=== PATIENT | male | born 1975 | race Caucasian/White ===

== ENCOUNTER 2016-06-10 21:14 | Emergency (ER) | payer OTHER ==
[~2016-06-10 21:14] MED LIST: FLEXERIL; TYLENOL #3
[2016-06-10] MEDS ORDERED: LIDOCAINE 1% MDV 20ML VIAL As Ordered ONE (22:46)
--- NOTE | 2016-06-10 23:33 | EDDOCDS ---
Physician Documentation [facility] Name: Wilfrido Lake Age: 40 yrs Sex: Male : 1975 Arrival Date: 06/10/2016 Time: 21:14 Bed I3 / M3 Private MD: [facility] Disposition: 06/10/16 23:17 Discharged to Home/Self Care. Impression: Cutaneous abscess of face. - Condition is Stable. - Discharge Instructions: Abscess, Incision and Drainage. - Medication Reconciliation, Local Pharmacy Hours form. - Follow up: [facility]; When: 1 - 2 days; Reason: Recheck today's complaints. Follow up: Emergency Department; When: As needed; Reason: Wound/Symptom Recheck, Fever > 102F, Worsening of conditions. - Problem is new. - Symptoms have improved. - Notes: have wound rechecked in 48 hrs. continue bactrim. keep wound clean, dry and covered Historical: - Allergies: No known drug Allergies; - Home Meds: 1. ibuprofen 800 mg Oral tab 3 times per day (Last dose: 06/10/2016 12:00) 2. sulfamethoxazole-trimethoprim 800-160 mg Oral tab 1 tab every 12 hours (Last dose: 06/10/2016 11:00) - PMHx: none; - PSHx: shoulder surgery 2007; - Social history: Smoking status: Patient uses tobacco products, current every day smoker. No barriers to communication noted, The patient speaks fluent Cape Verdean, Speaks appropriately for age, Preferred Language: Cape Verdean. - Family history: Not pertinent. - : The pt / caregiver states he / she is not on anticoagulants. Home medication list is obtained from the patient. - Exposure Risk Screening:: None identified. Vital Signs: 06/10 21:16 BP 116 / 73; Pulse 89; Resp 18 S; Temp 97.7(O); Pulse Ox 97% on R/A; Weight 72.57 kg / gr2 159.99 lbs (R); Height 5 ft. 6 in. (167.64 cm) (R); Pain 3/10; 23:26 BP 112 / 81; Pulse 69; Resp 18; Temp 98.0(O); Pulse Ox 96% on R/A; Pain 10/10; rw1 21:16 Body Mass Index 25.82 (72.57 kg, 167.64 cm) gr2 MDM: 22:45 Lidocaine 10 mg/mL (1 %) 10 ml Infiltration once; to bedside ordered. ar2 Administered Medications: 23:20 Drug: Lidocaine 10 ml [lidocaine 10 mg/mL (1 %) injection solution (10 mL)] {Note: rw1 adminstered by provider.} Route: Infiltration; Site: affected area; 23:21 Follow up: Response: No Adverse Reaction rw1 Signatures: Suzan LangleyRN RN lf1 Alfredo Del Real PA-C PA-C ar2 Marylin StevensRN RN ld5 Cleve Linares LPN rw1 The chart was reviewed and I authenticate all verbal orders and agree with the evaluation and treatment provided.Corrections: (The following items were deleted from the chart) 21:27 21:24 Home Meds: unknown antibiotic twice a day (Last Dose: 06/10/2016 11:00); lf1 lf1 MTDD
--- NOTE | 2016-06-10 23:33 | EDDOCDS ---
Nurse's Notes [facility] Name: Wilfrido Lake Age: 40 yrs Sex: Male : 1975 Arrival Date: 06/10/2016 Time: 21:14 Bed I3 / M3 Private MD: [facility] Diagnosis: Cutaneous abscess of face Presentation: 06/10 21:19 Presenting complaint: Patient states: Was seen at [facility] for an abscess on the left lf1 side of his face and put on an antibiotic "that ain't doing nothing" and I have been taking it for two days plus another that I had left over from another time. Pain is currently a 10/10. Redness and swelling noted to left side of face. Adult Sepsis Screening: The patient does not have new or worsening altered mentation. Patient's respiratory rate is less than 22. Systolic blood pressure is greater than 100. Patient has a qSOFA score of 0- Negative Sepsis Screen. Suicide/Homicide risk assessment- the patient denies having any suicidal and/or homicidal ideations and does not present with any other emotional, behavioral or mental health complaints. Status: Patient is not a vp client services or dependent. Transition of care: patient was not received from another setting of care. 21:19 Acuity: JUANPABLO Level 3 lf1 21:19 Method Of Arrival: Walkin/Carried/Asstd lf1 Triage Assessment: 21:24 General: Appears in no apparent distress, unkempt, Behavior is cooperative. Pain: lf1 Location: left cheek Pain currently is 10 out of 10 on a pain scale. HIV screening NA for this visit Offered previously. Neurological: Level of Consciousness is awake, alert, Oriented to person, place, time. Respiratory: Respiratory effort is even, unlabored. GI: Denies nausea, vomiting. Derm: Historical: - Allergies: No known drug Allergies; - Home Meds: 1. ibuprofen 800 mg Oral tab 3 times per day (Last dose: 06/10/2016 12:00) 2. sulfamethoxazole-trimethoprim 800-160 mg Oral tab 1 tab every 12 hours (Last dose: 06/10/2016 11:00) - PMHx: none; - PSHx: shoulder surgery 2007; - Social history: Smoking status: Patient uses tobacco products, current every day smoker. No barriers to communication noted, The patient speaks fluent Sami, Speaks appropriately for age, Preferred Language: Sami. - Family history: Not pertinent. - : The pt / caregiver states he / she is not on anticoagulants. Home medication list is obtained from the patient. - Exposure Risk Screening:: None identified. Screenin:27 Screening information is obtained from the patient. Fall risk: No risks identified. lf1 Assistance ADL's: requires no assistance with activities of daily living. Abuse/DV Screen: The patient / caregiver reports he/she is: not in a situation that causes fear, pain or injury. Nutritional screening: No deficits noted. Advance Directives: Currently, there is no health care proxy. There is no active DNR order. home support is adequate. Assessment: 23:30 General: Appears in no apparent distress, Behavior is cooperative. Pain: Location: left ld5 submandibular area Pain currently is 10 out of 10 on a pain scale. Neurological: Level of Consciousness is awake, alert. Respiratory: Airway is patent Respiratory effort is even, unlabored. Derm: Abscess located on left submandibular area. Vital Signs: 21:16 BP 116 / 73; Pulse 89; Resp 18 S; Temp 97.7(O); Pulse Ox 97% on R/A; Weight 72.57 kg gr2 (R); Height 5 ft. 6 in. (167.64 cm) (R); Pain 3/10; 23:26 BP 112 / 81; Pulse 69; Resp 18; Temp 98.0(O); Pulse Ox 96% on R/A; Pain 10/10; rw1 21:16 Body Mass Index 25.82 (72.57 kg, 167.64 cm) 2 Vitals: 21:16 Log In Time: June 10, 2016 at 21:16. gr2 ED Course: 21:15 Patient visited by Dipti Solano. gr2 21:15 NO PRIMARY PHYSICIAN, . is Private Physician. gr2 21:15 [facility] is Private Physician. gr2 21:15 Patient moved to Waiting gr2 21:17 Patient visited by Dipti Solano. gr2 21:17 Patient moved to Pre E elp 21:22 Triage Initiated lf1 22:23 Patient moved to Triage 2 cln 22:39 Alfred[facility] Del Real [facility] ar2 22:39 Tra Leger DO is Attending Physician. ar2 22:39 Patient visited by Alfredo Del Real PA-C. ar2 22:45 Patient moved to I3 / cz 22:45 Assist provider with I & D: of an abscess on left submandibular area. ld5 23:17 [facility] is Referral Physician. ar2 23:30 The patient / caregiver is instructed regarding the plan of care and ED course. Patient ld5 has correct armband on for positive identification. 23:30 No IV's were initiated during this patient's visit. ld5 23:32 Patient visited by Marylin Stevens RN. ld5 Administered Medications: 23:20 Drug: Lidocaine 10 ml [lidocaine 10 mg/mL (1 %) injection solution (10 mL)] {Note: rw1 adminstered by provider.} Route: Infiltration; Site: affected area; 23:21 Follow up: Response: No Adverse Reaction rw1 Order Results: There are currently no results for this order. Outcome: 23:17 Discharge ordered by Provider. ar2 23:31 Discharge Assessment: Patient awake, alert and oriented x 3. No cognitive and/or ld5 functional deficits noted. Patient verbalized understanding of disposition instructions. patient administered narcotics - no. The following High Risk Discharge criteria are identified: None. Discharged to home ambulatory, with significant other. Condition: stable. Discharge instructions given to patient, significant other, Instructed on discharge instructions, follow up and referral plans. wound care, Demonstrated understanding of instructions, Pt was receptive of discharge instructions/ teaching. No special radiology studies were completed. Property :Personal belongings accompany Pt. 23:32 Patient left the ED. ld5 Signatures: Frank Rayo, PAL RN cz Cleve Linares LPN LPN rw1 Suzan Langley RN RN lf1 Alfredo Del Real PA-C PA-C ar2 Marylin Stevens,RN RN ld5 Dipti Solano gr2 Natalie Ortiz, PATTERNMAKER APPRENTICE WOOD PATTERNMAKER APPRENTICE WOOD Ashley De Jesus, PATTERNMAKER APPRENTICE WOOD PATTERNMAKER APPRENTICE WOOD cln Corrections: (The following items were deleted from the chart) 21:27 21:24 Home Meds: unknown antibiotic twice a day (Last Dose: 06/10/2016 11:00); [place] [id number] MTDD
--- NOTE | 2016-06-13 00:33 | EDDOCDS ---
Nurse's Notes [facility] Name: Wilfrido Lake Age: 40 yrs Sex: Male : 1975 Arrival Date: 06/10/2016 Time: 21:14 Bed I3 / M3 Private MD: [facility] Diagnosis: Cutaneous abscess of face Presentation: 06/10 21:19 Presenting complaint: Patient states: Was seen at [facility] for an abscess on the left lf1 side of his face and put on an antibiotic "that ain't doing nothing" and I have been taking it for two days plus another that I had left over from another time. Pain is currently a 10/10. Redness and swelling noted to left side of face. Adult Sepsis Screening: The patient does not have new or worsening altered mentation. Patient's respiratory rate is less than 22. Systolic blood pressure is greater than 100. Patient has a qSOFA score of 0- Negative Sepsis Screen. Suicide/Homicide risk assessment- the patient denies having any suicidal and/or homicidal ideations and does not present with any other emotional, behavioral or mental health complaints. Status: Patient is not a representative personal service or dependent. Transition of care: patient was not received from another setting of care. 21:19 Acuity: JUANPABLO Level 3 lf1 21:19 Method Of Arrival: Walkin/Carried/Asstd lf1 Triage Assessment: 21:24 General: Appears in no apparent distress, unkempt, Behavior is cooperative. Pain: lf1 Location: left cheek Pain currently is 10 out of 10 on a pain scale. HIV screening NA for this visit Offered previously. Neurological: Level of Consciousness is awake, alert, Oriented to person, place, time. Respiratory: Respiratory effort is even, unlabored. GI: Denies nausea, vomiting. Derm: Historical: - Allergies: No known drug Allergies; - Home Meds: 1. ibuprofen 800 mg Oral tab 3 times per day (Last dose: 06/10/2016 12:00) 2. sulfamethoxazole-trimethoprim 800-160 mg Oral tab 1 tab every 12 hours (Last dose: 06/10/2016 11:00) - PMHx: none; - PSHx: shoulder surgery 2007; - Social history: Smoking status: Patient uses tobacco products, current every day smoker. No barriers to communication noted, The patient speaks fluent Macedonian, Speaks appropriately for age, Preferred Language: Macedonian. - Family history: Not pertinent. - : The pt / caregiver states he / she is not on anticoagulants. Home medication list is obtained from the patient. - Exposure Risk Screening:: None identified. Screenin:27 Screening information is obtained from the patient. Fall risk: No risks identified. lf1 Assistance ADL's: requires no assistance with activities of daily living. Abuse/DV Screen: The patient / caregiver reports he/she is: not in a situation that causes fear, pain or injury. Nutritional screening: No deficits noted. Advance Directives: Currently, there is no health care proxy. There is no active DNR order. home support is adequate. Assessment: 23:30 General: Appears in no apparent distress, Behavior is cooperative. Pain: Location: left ld5 submandibular area Pain currently is 10 out of 10 on a pain scale. Neurological: Level of Consciousness is awake, alert. Respiratory: Airway is patent Respiratory effort is even, unlabored. Derm: Abscess located on left submandibular area. Vital Signs: 21:16 BP 116 / 73; Pulse 89; Resp 18 S; Temp 97.7(O); Pulse Ox 97% on R/A; Weight 72.57 kg gr2 (R); Height 5 ft. 6 in. (167.64 cm) (R); Pain 3/10; 23:26 BP 112 / 81; Pulse 69; Resp 18; Temp 98.0(O); Pulse Ox 96% on R/A; Pain 10/10; rw1 21:16 Body Mass Index 25.82 (72.57 kg, 167.64 cm) 2 Vitals: 21:16 Log In Time: June 10, 2016 at 21:16. gr2 ED Course: 21:15 Patient visited by Dipti Solano. gr2 21:15 NO PRIMARY PHYSICIAN, . is Private Physician. gr2 21:15 [facility] is Private Physician. gr2 21:15 Patient moved to Waiting gr2 21:17 Patient visited by Dipti Solano. gr2 21:17 Patient moved to Pre E elp 21:22 Triage Initiated lf1 22:23 Patient moved to Triage 2 cln 22:39 Alfred[facility] Del Real [facility]C [facility] ar2 22:39 Tra Leger DO is Attending Physician. ar2 22:39 Patient visited by Alfredo Del Real PA-C. ar2 22:45 Patient moved to I3 / M3 cz 22:45 Assist provider with I & D: of an abscess on left submandibular area. ld5 23:17 [facility] is Referral Physician. ar2 23:30 The patient / caregiver is instructed regarding the plan of care and ED course. Patient ld5 has correct armband on for positive identification. 23:30 No IV's were initiated during this patient's visit. ld5 23:32 Patient visited by Marylin Stevens RN. ld5 23:55 [facility] Payment Agreement was scanned into [employer] and attached to record. ks16 06/11 10:56 T-Sheet-- Draft Copy was scanned into [employer] and attached to record. gb 06/12 21:47 [facility] Payment Agreement was scanned into [employer] and attached to record. ks16 Administered Medications: 06/10 23:20 Drug: Lidocaine 10 ml [lidocaine 10 mg/mL (1 %) injection solution (10 mL)] {Note: rw1 adminstered by provider.} Route: Infiltration; Site: affected area; 23:21 Follow up: Response: No Adverse Reaction rw1 Order Results: There are currently no results for this order. Outcome: 23:17 Discharge ordered by Provider. ar2 23:31 Discharge Assessment: Patient awake, alert and oriented x 3. No cognitive and/or ld5 functional deficits noted. Patient verbalized understanding of disposition instructions. patient administered narcotics - no. The following High Risk Discharge criteria are identified: None. Discharged to home ambulatory, with significant other. Condition: stable. Discharge instructions given to patient, significant other, Instructed on discharge instructions, follow up and referral plans. wound care, Demonstrated understanding of instructions, Pt was receptive of discharge instructions/ teaching. No special radiology studies were completed. Property :Personal belongings accompany Pt. 23:32 Patient left the ED. ld5 Signatures: Frank Rayo, PAL RN cz Dimple Rolon, Reg Reg gb Cleve Linares LPN LPN rw1 Suzan Langley RN RN lf1 Alfredo Del Real PA-C PA-C ar2 Marylin Stevens,PAL RN ld5 Dipti Solano gr2 Natalie Ortiz, INTENSIVE CARE ANAESTHETIST INTENSIVE CARE ANAESTHETIST elp Bette Nava, Reg Reg ks16 Ashley James, INTENSIVE CARE ANAESTHETIST INTENSIVE CARE ANAESTHETIST cln Corrections: (The following items were deleted from the chart) 21:24 Home Meds: unknown antibiotic twice a day (Last Dose: 06/10/2016 11:00); lf1 lf1 Chart Complete MTDD
--- NOTE | 2016-06-13 00:33 | EDDOCDS ---
Physician Documentation [facility] Name: Wilfrido Lake Age: 40 yrs Sex: Male : 1975 Arrival Date: 06/10/2016 Time: 21:14 Bed I3 / M3 Private MD: [facility] Disposition: 06/10/16 23:17 Discharged to Home/Self Care. Impression: Cutaneous abscess of face. - Condition is Stable. - Discharge Instructions: Abscess, Incision and Drainage. - Medication Reconciliation, Local Pharmacy Hours form. - Follow up: [facility]; When: 1 - 2 days; Reason: Recheck today's complaints. Follow up: Emergency Department; When: As needed; Reason: Wound/Symptom Recheck, Fever > 102F, Worsening of conditions. - Problem is new. - Symptoms have improved. - Notes: have wound rechecked in 48 hrs. continue bactrim. keep wound clean, dry and covered Historical: - Allergies: No known drug Allergies; - Home Meds: 1. ibuprofen 800 mg Oral tab 3 times per day (Last dose: 06/10/2016 12:00) 2. sulfamethoxazole-trimethoprim 800-160 mg Oral tab 1 tab every 12 hours (Last dose: 06/10/2016 11:00) - PMHx: none; - PSHx: shoulder surgery 2007; - Social history: Smoking status: Patient uses tobacco products, current every day smoker. No barriers to communication noted, The patient speaks fluent Andorran, Speaks appropriately for age, Preferred Language: Andorran. - Family history: Not pertinent. - : The pt / caregiver states he / she is not on anticoagulants. Home medication list is obtained from the patient. - Exposure Risk Screening:: None identified. Vital Signs: 06/10 21:16 BP 116 / 73; Pulse 89; Resp 18 S; Temp 97.7(O); Pulse Ox 97% on R/A; Weight 72.57 kg / gr2 159.99 lbs (R); Height 5 ft. 6 in. (167.64 cm) (R); Pain 3/10; 23:26 BP 112 / 81; Pulse 69; Resp 18; Temp 98.0(O); Pulse Ox 96% on R/A; Pain 10/10; rw1 21:16 Body Mass Index 25.82 (72.57 kg, 167.64 cm) gr2 MDM: 22:45 Lidocaine 10 mg/mL (1 %) 10 ml Infiltration once; to bedside ordered. ar2 23:55 Financial registration complete. [facility] 23:56 [facility] Payment Agreement was scanned into [employer] and attached to record. ks16 06/11 10:56 T-Sheet-- Draft Copy was scanned into [employer] and attached to record. 06/12 21:47 [facility] Payment Agreement was scanned into [employer] and attached to record. [facility] Administered Medications: 06/10 23:20 Drug: Lidocaine 10 ml [lidocaine 10 mg/mL (1 %) injection solution (10 mL)] {Note: rw1 adminstered by provider.} Route: Infiltration; Site: affected area; 23:21 Follow up: Response: No Adverse Reaction rw1 Signatures: Dimple Rolon, Reg Reg gb Suzan LangleyRN RN lf1 Alfredo Del Real PA-C PA-C ar2 Marylin StevensRN RN ld5 Bette Nava, Reg Reg ks16 Cleve Linares LPN rw1 The chart was reviewed and I authenticate all verbal orders and agree with the evaluation and treatment provided.Corrections: (The following items were deleted from the chart) : 21:24 Home Meds: unknown antibiotic twice a day (Last Dose: 06/10/2016 11:00); lf1 lf1 Attachments: 23:56 [facility] Payment Agreement [email or web address] 06/11 10:56 T-Sheet-- Draft Copy 06/12 21:47 [facility] Payment Agreement [facility] Chart Complete MTDD
--- NOTE | 2016-06-13 00:33 | EDDOCDS ---
Physician Documentation [facility] Name: Wilfrido Lake Age: 40 yrs Sex: Male : 1975 Arrival Date: 06/10/2016 Time: 21:14 Bed I3 / M3 Private MD: [facility] Disposition: 06/10/16 23:17 Discharged to Home/Self Care. Impression: Cutaneous abscess of face. - Condition is Stable. - Discharge Instructions: Abscess, Incision and Drainage. - Medication Reconciliation, Local Pharmacy Hours form. - Follow up: [facility]; When: 1 - 2 days; Reason: Recheck today's complaints. Follow up: Emergency Department; When: As needed; Reason: Wound/Symptom Recheck, Fever > 102F, Worsening of conditions. - Problem is new. - Symptoms have improved. - Notes: have wound rechecked in 48 hrs. continue bactrim. keep wound clean, dry and covered Historical: - Allergies: No known drug Allergies; - Home Meds: 1. ibuprofen 800 mg Oral tab 3 times per day (Last dose: 06/10/2016 12:00) 2. sulfamethoxazole-trimethoprim 800-160 mg Oral tab 1 tab every 12 hours (Last dose: 06/10/2016 11:00) - PMHx: none; - PSHx: shoulder surgery 2007; - Social history: Smoking status: Patient uses tobacco products, current every day smoker. No barriers to communication noted, The patient speaks fluent [place]ine[place], Speaks appropriately for age, Preferred Language: [place]. - Family history: Not pertinent. - : The pt / caregiver states he / she is not on anticoagulants. Home medication list is obtained from the patient. - Exposure Risk Screening:: None identified. Vital Signs: 06/10 21:16 BP 116 / 73; Pulse 89; Resp 18 S; Temp 97.7(O); Pulse Ox 97% on R/A; Weight 72.57 kg / gr2 159.99 lbs (R); Height 5 ft. 6 in. (167.64 cm) (R); Pain 3/10; 23:26 BP 112 / 81; Pulse 69; Resp 18; Temp 98.0(O); Pulse Ox 96% on R/A; Pain 10/10; rw1 21:16 Body Mass Index 25.82 (72.57 kg, 167.64 cm) gr2 MDM: 22:45 Lidocaine 10 mg/mL (1 %) 10 ml Infiltration once; to bedside ordered. ar2 23:55 Financial registration complete. [facility] 23:56 [facility] Payment Agreement was scanned into [employer] and attached to record. [email or web address] 06/11 10:56 T-Sheet-- Draft Copy was scanned into [employer] and attached to record. 06/12 21:47 [facility] Payment Agreement was scanned into [employer] and attached to record. [facility] Administered Medications: 06/10 23:20 Drug: Lidocaine 10 ml [lidocaine 10 mg/mL (1 %) injection solution (10 mL)] {Note: rw1 adminstered by provider.} Route: Infiltration; Site: affected area; 23:21 Follow up: Response: No Adverse Reaction rw1 Signatures: Dimple Rolon, Reg Reg gb Suzan LangleyRN RN lf1 Alfredo Del Real PA-C PA-C ar2 Marylin StevensRN RN ld5 Bette Nava, Reg Reg ks16 Cleve Linares LPN rw1 The chart was reviewed and I authenticate all verbal orders and agree with the evaluation and treatment provided.Corrections: (The following items were deleted from the chart) : 21:24 Home Meds: unknown antibiotic twice a day (Last Dose: 06/10/2016 11:00); lf1 lf1 Attachments: 23:56 [facility] Payment Agreement [email or web address] 06/11 10:56 T-Sheet-- Draft Copy 06/12 21:47 [facility] Payment Agreement [facility] Chart Complete MTDD
== END 2016-06-10 23:32 | disposition home or self-care (01) ==
LOC: M ED 21:14
DX: L02.01 Cutaneous abscess of face (principal); F17.200 Nicotine dependence, unspecified, uncomplicated; Z79.2 Long term (current) use of antibiotics

== ENCOUNTER 2016-06-12 20:12 | Emergency (ER) | payer OTHER ==
--- NOTE | 2016-06-12 21:37 | EDDOCDS ---
Nurse's Notes [facility] Name: Wilfrido Lake Age: 40 yrs Sex: Male : 1975 Arrival Date: 06/12/2016 Time: 20:12 Bed TR7 Private MD: Mable Lambert Diagnosis: Cutaneous abscess of face-RECHECK Presentation: 06/12 20:20 Presenting complaint: Patient states: here for a L face abscess recheck. Adult Sepsis rs3 Screening: The patient does not have new or worsening altered mentation. Patient's respiratory rate is less than 22. Systolic blood pressure is greater than 100. Patient has a qSOFA score of 0- Negative Sepsis Screen. Suicide/Homicide risk assessment- the patient denies having any suicidal and/or homicidal ideations and does not present with any other emotional, behavioral or mental health complaints. Status: Patient is not a cash register servicer or dependent. Transition of care: patient was not received from another setting of care. 20:20 Acuity: JUANPABLO Level 4 rs3 20:20 Method Of Arrival: Walkin/Carried/Asstd rs3 Triage Assessment: 20:22 General: Appears in no apparent distress. Pain: Location: left jaw. HIV screening NA rs3 for this visit Offered previously. Historical: - Allergies: no known allergies; - Home Meds: 1. sulfamethoxazole-trimethoprim 800-160 mg Oral tab 1 tab every 12 hours 2. ibuprofen 800 mg Oral tab 3 times per day - PMHx: none; - PSHx: shoulder surgery 2007; - Social history: Smoking status: Patient uses tobacco products, light tobacco smoker. No barriers to communication noted, The patient speaks fluent Sinhala. - Family history: Not pertinent. - : The pt / caregiver states he / she is not on anticoagulants. Home medication list is obtained from the patient. - Exposure Risk Screening:: None identified. Screenin:32 Screening information is obtained from the patient. Fall risk: No risks identified. slm Assistance ADL's: requires no assistance with activities of daily living. Abuse/DV Screen: The patient / caregiver reports he/she is: not in a situation that causes fear, pain or injury. Nutritional screening: No deficits noted. Advance Directives: Currently, there is no health care proxy. There is no active DNR order. There is no living will. There is no Power of Stage Rigger. Advance directive information has not previously been placed in an [facility] medical record. Further advance directive information is declined. home support is adequate. Assessment: 21:31 General: Appears in no apparent distress, comfortable, Behavior is appropriate for age, slm cooperative, pt seen by PA prior to contract technical writer entering room . Derm: Swollen area noted on left jaw. Vital Signs: 20:13 BP 111 / 73; Pulse 85; Resp 18 S; Temp 97.4(O); Pulse Ox 96% on R/A; Weight 72.57 kg dd6 (R); Height 5 ft. 6 in. (167.64 cm) (R); 20:13 Body Mass Index 25.82 (72.57 kg, 167.64 cm) dd6 Vitals: 20:13 Log In Time: June 12, 2016 at 20:11. dd6 ED Course: 20:13 Patient visited by Bryan Spann PCA. dd6 20:13 Mable Lambert is Private Physician. dd6 20:13 Patient moved to Waiting dd6 20:15 Patient moved to Pre RCE dd6 20:21 Triage Initiated rs3 20:58 Patient moved to Triage 2 ct3 21:05 Christiano Tripp RPA-C [facility]. ck7 21:05 Abiodun Morgan DO is Attending Physician. ck7 21:05 Patient visited by Chritsiano Tripp RPA-C. ck7 21:28 Flash Hou DO is Referral Physician. ck7 21:31 Patient moved to TR7 ct3 21:36 Patient visited by Jhoana Maya LPN. slm 21:36 The patient / caregiver is instructed regarding the plan of care and ED course. slm 21:36 No IV's were initiated during this patient's visit. No procedures done that require slm assistance. Order Results: There are currently no results for this order. Outcome: 21:28 Discharge ordered by Provider. ck7 21:35 Discharge Assessment: Patient awake, alert and oriented x 3. No cognitive and/or slm functional deficits noted. Patient verbalized understanding of disposition instructions. patient administered narcotics - no. The following High Risk Discharge criteria are identified: None. Discharged to home ambulatory. Condition: good. Discharge instructions given to patient, Instructed on discharge instructions, follow up and referral plans. Demonstrated understanding of instructions, Pt was receptive of discharge instructions/ teaching. No special radiology studies were completed. Property :Personal belongings accompany Pt. 21:36 Patient left the ED. con Signatures: Bryan Spann, CHANGE MANAGEMENT ADMINISTRATOR CHANGE MANAGEMENT ADMINISTRATOR dd6 Doris Luz,RN RN rs3 Lory Anderson, CHANGE MANAGEMENT ADMINISTRATOR CHANGE MANAGEMENT ADMINISTRATOR ct3 Christiano Tripp, DAVON-C RPA-Cck7 Jhoana Maya LPN LPN [facility] MTDD
--- NOTE | 2016-06-12 21:37 | EDDOCDS ---
Physician Documentation [facility] Name: Wilfrido Lake Age: 40 yrs Sex: Male : 1975 Arrival Date: 06/12/2016 Time: 20:12 Bed TR7 Private MD: Mable Lambert Disposition: 06/12/16 21:28 Discharged to Home/Self Care. Impression: Cutaneous abscess of face - RECHECK. - Condition is Stable. - Discharge Instructions: Abscess. - Medication Reconciliation, Local Pharmacy Hours form. - Follow up: Flash Hou DO; When: 2 - 3 days; Reason: Recheck today's complaints, Continuance of care. - Problem is new. - Symptoms have improved. - Notes: CONTINUE WITH BACTRIM, USE WARM, WET SALT WATER WASH CLOTH TO AREA MULTIPLE TIMES PER DAY, FOLLOW UP WITH DR HOU FOR POSSIBLE EXCISION OF CYST, RETURN IF INCREASED REDNESS, SWELLING, PAIN OR FEVER OCCURS Historical: - Allergies: no known allergies; - Home Meds: 1. sulfamethoxazole-trimethoprim 800-160 mg Oral tab 1 tab every 12 hours 2. ibuprofen 800 mg Oral tab 3 times per day - PMHx: none; - PSHx: shoulder surgery 2007; - Social history: Smoking status: Patient uses tobacco products, light tobacco smoker. No barriers to communication noted, The patient speaks fluent Romanian. - Family history: Not pertinent. - : The pt / caregiver states he / she is not on anticoagulants. Home medication list is obtained from the patient. - Exposure Risk Screening:: None identified. Vital Signs: 06/12 20:13 BP 111 / 73; Pulse 85; Resp 18 S; Temp 97.4(O); Pulse Ox 96% on R/A; Weight 72.57 kg / dd6 159.99 lbs (R); Height 5 ft. 6 in. (167.64 cm) (R); 20:13 Body Mass Index 25.82 (72.57 kg, 167.64 cm) dd6 Signatures: Doris Luz,RN RN rs3 Christiano Tripp, RPA-C RPA-Cck7 Jhoana Maya,RAG INSPECTOR RAG INSPECTOR [facility] MTDD
--- NOTE | 2016-06-14 22:37 | EDDOCDS ---
Nurse's Notes [facility] Name: Wilfrido Lake Age: 40 yrs Sex: Male : 1975 Arrival Date: 06/12/2016 Time: 20:12 Bed TR7 Private MD: Mable Lambert Diagnosis: Cutaneous abscess of face-RECHECK Presentation: 06/12 20:20 Presenting complaint: Patient states: here for a L face abscess recheck. Adult Sepsis rs3 Screening: The patient does not have new or worsening altered mentation. Patient's respiratory rate is less than 22. Systolic blood pressure is greater than 100. Patient has a qSOFA score of 0- Negative Sepsis Screen. Suicide/Homicide risk assessment- the patient denies having any suicidal and/or homicidal ideations and does not present with any other emotional, behavioral or mental health complaints. Status: Patient is not a multimedia services coordinator or dependent. Transition of care: patient was not received from another setting of care. 20:20 Acuity: JUANPABLO Level 4 rs3 20:20 Method Of Arrival: Walkin/Carried/Asstd rs3 Triage Assessment: 20:22 General: Appears in no apparent distress. Pain: Location: left jaw. HIV screening NA rs3 for this visit Offered previously. Historical: - Allergies: no known allergies; - Home Meds: 1. sulfamethoxazole-trimethoprim 800-160 mg Oral tab 1 tab every 12 hours 2. ibuprofen 800 mg Oral tab 3 times per day - PMHx: none; - PSHx: shoulder surgery 2007; - Social history: Smoking status: Patient uses tobacco products, light tobacco smoker. No barriers to communication noted, The patient speaks fluent Bengali. - Family history: Not pertinent. - : The pt / caregiver states he / she is not on anticoagulants. Home medication list is obtained from the patient. - Exposure Risk Screening:: None identified. Screenin:32 Screening information is obtained from the patient. Fall risk: No risks identified. slm Assistance ADL's: requires no assistance with activities of daily living. Abuse/DV Screen: The patient / caregiver reports he/she is: not in a situation that causes fear, pain or injury. Nutritional screening: No deficits noted. Advance Directives: Currently, there is no health care proxy. There is no active DNR order. There is no living will. There is no Power of Grab Jack Worker. Advance directive information has not previously been placed in an [facility] medical record. Further advance directive information is declined. home support is adequate. Assessment: 21:31 General: Appears in no apparent distress, comfortable, Behavior is appropriate for age, slm cooperative, pt seen by PA prior to underwriter entering room . Derm: Swollen area noted on left jaw. Vital Signs: 20:13 BP 111 / 73; Pulse 85; Resp 18 S; Temp 97.4(O); Pulse Ox 96% on R/A; Weight 72.57 kg dd6 (R); Height 5 ft. 6 in. (167.64 cm) (R); 20:13 Body Mass Index 25.82 (72.57 kg, 167.64 cm) dd6 Vitals: 20:13 Log In Time: June 12, 2016 at 20:11. dd6 ED Course: 20:13 Patient visited by Bryan Spann PCA. dd6 20:13 Mable Lambert is Private Physician. dd6 20:13 Patient moved to Waiting dd6 20:15 Patient moved to Pre RCE dd6 20:21 Triage Initiated rs3 20:58 Patient moved to Triage 2 ct3 21:05 [facility] Tripp [facility]-C [facility] ck7 21:05 Abiodun Morgan DO is Attending Physician. ck7 21:05 Patient visited by Christiano Tripp RPA-C. ck7 21:28 Flash Hou DO is Referral Physician. ck7 21:31 Patient moved to TR7 ct3 21:36 Patient visited by Jhoana Maya LPN. slm 21:36 The patient / caregiver is instructed regarding the plan of care and ED course. slm 21:36 No IV's were initiated during this patient's visit. No procedures done that require slm assistance. 06/13 18:54 T-Sheet-- Draft Copy was scanned into [employer] and attached to record. kf3 Order Results: There are currently no results for this order. Outcome: 06/12 21:28 Discharge ordered by Provider. ck7 21:35 Discharge Assessment: Patient awake, alert and oriented x 3. No cognitive and/or slm functional deficits noted. Patient verbalized understanding of disposition instructions. patient administered narcotics - no. The following High Risk Discharge criteria are identified: None. Discharged to home ambulatory. Condition: good. Discharge instructions given to patient, Instructed on discharge instructions, follow up and referral plans. Demonstrated understanding of instructions, Pt was receptive of discharge instructions/ teaching. No special radiology studies were completed. Property :Personal belongings accompany Pt. 21:36 Patient left the ED. slm Signatures: Jaswant Renee, Reg Reg kf3 Bryan Spann, FRONT DESK COORDINATOR FRONT DESK COORDINATOR dd6 Doris LuzRN RN rs3 Lory Anderson, FRONT DESK COORDINATOR FRONT DESK COORDINATOR ct3 Christiano Tripp, RPA-C RPA-Cck7 Jhoana Maya,HEATHER IBARRAN [facility] Chart Complete MTDDiaz
--- NOTE | 2016-06-14 22:37 | EDDOCDS ---
Physician Documentation [facility] Name: Wilfrido Lake Age: 40 yrs Sex: Male : 1975 Arrival Date: 06/12/2016 Time: 20:12 Bed TR7 Private MD: Mable Lambert Disposition: 06/12/16 21:28 Discharged to Home/Self Care. Impression: Cutaneous abscess of face - RECHECK. - Condition is Stable. - Discharge Instructions: Abscess. - Medication Reconciliation, Local Pharmacy Hours form. - Follow up: Flash Hou DO; When: 2 - 3 days; Reason: Recheck today's complaints, Continuance of care. - Problem is new. - Symptoms have improved. - Notes: CONTINUE WITH BACTRIM, USE WARM, WET SALT WATER WASH CLOTH TO AREA MULTIPLE TIMES PER DAY, FOLLOW UP WITH DR HOU FOR POSSIBLE EXCISION OF CYST, RETURN IF INCREASED REDNESS, SWELLING, PAIN OR FEVER OCCURS Historical: - Allergies: no known allergies; - Home Meds: 1. sulfamethoxazole-trimethoprim 800-160 mg Oral tab 1 tab every 12 hours 2. ibuprofen 800 mg Oral tab 3 times per day - PMHx: none; - PSHx: shoulder surgery 2007; - Social history: Smoking status: Patient uses tobacco products, light tobacco smoker. No barriers to communication noted, The patient speaks fluent Bulgarian. - Family history: Not pertinent. - : The pt / caregiver states he / she is not on anticoagulants. Home medication list is obtained from the patient. - Exposure Risk Screening:: None identified. Vital Signs: 06/12 20:13 BP 111 / 73; Pulse 85; Resp 18 S; Temp 97.4(O); Pulse Ox 96% on R/A; Weight 72.57 kg / dd6 159.99 lbs (R); Height 5 ft. 6 in. (167.64 cm) (R); 20:13 Body Mass Index 25.82 (72.57 kg, 167.64 cm) dd6 MDM: 06/13 18:54 T-Sheet-- Draft Copy was scanned into [employer] and attached to record. kf3 Signatures: Jaswant Renee, Reg Reg kf3 Doris Luz RN RN rs3 Christiano Tripp, RPA-C RPA-Cck7 Jhoana Maya LPN LPN slm The chart was reviewed and I authenticate all verbal orders and agree with the evaluation and treatment provided.Attachments: 18:54 T-Sheet-- Draft Copy kf3 Chart Complete MTDD
--- NOTE | 2016-06-14 22:37 | EDDOCDS ---
Physician Documentation [facility] Name: Wilfrido Lake Age: 40 yrs Sex: Male : 1975 Arrival Date: 06/12/2016 Time: 20:12 Bed TR7 Private MD: Mable Lambert Disposition: 06/12/16 21:28 Discharged to Home/Self Care. Impression: Cutaneous abscess of face - RECHECK. - Condition is Stable. - Discharge Instructions: Abscess. - Medication Reconciliation, Local Pharmacy Hours form. - Follow up: Flash Hou DO; When: 2 - 3 days; Reason: Recheck today's complaints, Continuance of care. - Problem is new. - Symptoms have improved. - Notes: CONTINUE WITH BACTRIM, USE WARM, WET SALT WATER WASH CLOTH TO AREA MULTIPLE TIMES PER DAY, FOLLOW UP WITH DR HOU FOR POSSIBLE EXCISION OF CYST, RETURN IF INCREASED REDNESS, SWELLING, PAIN OR FEVER OCCURS Historical: - Allergies: no known allergies; - Home Meds: 1. sulfamethoxazole-trimethoprim 800-160 mg Oral tab 1 tab every 12 hours 2. ibuprofen 800 mg Oral tab 3 times per day - PMHx: none; - PSHx: shoulder surgery 2007; - Social history: Smoking status: Patient uses tobacco products, light tobacco smoker. No barriers to communication noted, The patient speaks fluent Divehi. - Family history: Not pertinent. - : The pt / caregiver states he / she is not on anticoagulants. Home medication list is obtained from the patient. - Exposure Risk Screening:: None identified. Vital Signs: 06/12 20:13 BP 111 / 73; Pulse 85; Resp 18 S; Temp 97.4(O); Pulse Ox 96% on R/A; Weight 72.57 kg / dd6 159.99 lbs (R); Height 5 ft. 6 in. (167.64 cm) (R); 20:13 Body Mass Index 25.82 (72.57 kg, 167.64 cm) dd6 MDM: 06/13 18:54 T-Sheet-- Draft Copy was scanned into [employer] and attached to record. kf3 Signatures: Jaswant Renee, Reg Reg kf3 Doris Luz RN RN rs3 Christiano Tripp, RPA-C RPA-Cck7 Jhoana Maya LPN LPN slm The chart was reviewed and I authenticate all verbal orders and agree with the evaluation and treatment provided.Attachments: 18:54 T-Sheet-- Draft Copy kf3 Chart Complete MTDD
== END 2016-06-12 21:36 | disposition home or self-care (01) ==
LOC: M ED 20:12
DX: L02.01 Cutaneous abscess of face (principal); F17.200 Nicotine dependence, unspecified, uncomplicated; Z79.1 Long term (current) use of non-steroidal anti-inflammatories (NSAID); Z79.899 Other long term (current) drug therapy

== ENCOUNTER 2016-10-08 18:04 | Emergency (ER) | payer OTHER ==
[~2016-10-08] VITALS: Ht 167.6 cm; Wt 72.6 kg
[2016-10-08] MEDS ORDERED: IBUP600T26 PO (18:14)
[2016-10-08] MEDS ORDERED: CLIN1CAP5 PO (18:14)
[2016-10-08] MEDS ORDERED: KETOROLAC 60 MG/2 ML VIAL (J1885) IM ONE (18:30)
[2016-10-08] MEDS ORDERED: ACET30TAB PO (18:53)
[2016-10-08] MEDS ORDERED: CYCL10TA PO (18:53)
--- NOTE | 2016-10-08 18:54 | REP ---
Clinical: Shoulder pain. Technique: AP, lateral, flexion/extension, bilateral oblique, and open-mouth views. Findings: Alignment and lordosis is maintained. There is no evidence for acute fracture / compression injury or subluxation. No significant degenerative changes are appreciated. Oblique views demonstrate patent neural foramen. Open mouth view demonstrates normal C1-C2 articulation and odontoid process. Impression: Normal, age appropriate cervical spine series. Signed by Michael Madsen MD 10/08/2016 06:45 P
[2016-10-08 18:58] VITALS: BP 112/78
== END 2016-10-08 19:04 | disposition home or self-care (01) ==
LOC: M ED 18:41
DX: S43.401A Unspecified sprain of right shoulder joint, initial encounter (principal); X50.3XXA Overexertion from repetitive movements, initial encounter; Y92.019 Unspecified place in single-family (private) house as the place of occurrence of the external cause; Y93.44 Activity, trampolining; Y99.8 Other external cause status; M54.9 Dorsalgia, unspecified; G89.29 Other chronic pain; F17.210 Nicotine dependence, cigarettes, uncomplicated; Z79.1 Long term (current) use of non-steroidal anti-inflammatories (NSAID)

== ENCOUNTER 2017-05-17 19:48 | Emergency (ER) | payer OTHER ==
[2017-05-17] MEDS: ASPIRIN 81 MG CHEW TABLET PO (20:48)
[2017-05-17 20:52] LABS: BASO # 0.1 10^3/uL (0.0-0.2); BASO % 0.9 % (0.0-1.0); EOS # 0.4 10^3/uL (0.0-0.50); EOS % 4.4 % (0.0-3.0); HEMATOCRIT 45.9 % (42.0-52.0); HEMOGLOBIN 15.9 g/dl (14.0-18.0); IMMATURE GRANULOCYTE % 0.2 % (0-0); LYMPH # 3.1 10^3/uL (1.5-4.5); LYMPH % 33.5 % (24.0-44.0); MEAN CORPUSCULAR HEMOGLOBIN 30.6 pg (27.0-33.0); MEAN CORPUSCULAR HGB CONC 34.6 g/dl (32.0-36.5); MEAN CORPUSCULAR VOLUME 88.3 fl (80.0-96.0); MONO # 0.9 10^3/uL (0.0-0.8); MONO % 9.1 % (0.0-5.0); NEUTROPHILS # 4.8 10^3/uL (1.8-7.7); NEUTROPHILS % 51.9 % (36.0-66.0); PLATELET COUNT, AUTOMATED 194 10^3/uL (150-450); RED CELL DISTRIBUTION WIDTH 12.5 % (11.5-14.5); WHITE BLOOD COUNT 9.3 10^3/uL (4.0-10.0)
[2017-05-17 21:09] LABS: INR 0.91; PROTHROMBIN TIME 12.3 SECONDS (12.4-14.5)
[2017-05-17 21:10] LABS: PARTIAL THROMBOPLASTIN TIME 26.2 SECONDS (26.8-37.9)
[2017-05-17 21:17] LABS: ANION GAP 8 MEQ/L (8-16); BLOOD UREA NITROGEN 12 MG/DL (7-18); CARBON DIOXIDE LEVEL 29 MEQ/L (21-32); CHLORIDE LEVEL 103 MEQ/L (98-107); CPK CREATINE PHOSPHOKINASE 101 U/L (39-308); CREATININE FOR GFR 0.93 MG/DL (0.70-1.30); GLOMERULAR FILTRATION RATE > 60.0 (>60); GLUCOSE, FASTING 101 MG/DL (70-105); POTASSIUM SERUM 4.1 MEQ/L (3.5-5.1); SODIUM LEVEL 140 MEQ/L (136-145); TROPONIN I < 0.02 NG/ML (< 0.10)
[2017-05-17 21:18] LABS: MB/CK RELATIVE INDEX 0.99 (< OR =4)
[2017-05-17] MEDS: NS 1,000 ML IV (21:28)
[2017-05-17] MEDS ORDERED: ISOVUE-370 76% 100ML VIAL (Q9967) As Ordered (21:52)
[2017-05-18 00:36] LABS: CPK CREATINE PHOSPHOKINASE 80 U/L (39-308); MB/CK RELATIVE INDEX 1.25 (< OR =4); TROPONIN I < 0.02 NG/ML (< 0.10)
== END 2017-05-18 01:05 | disposition home or self-care (01) ==
LOC: M ED 05-18 01:05
DX: R07.89 Other chest pain (principal); F17.200 Nicotine dependence, unspecified, uncomplicated
CPT/HCPCS: Q9967

== ENCOUNTER 2017-05-28 23:16 | Emergency (ER) | payer OTHER ==
[2017-05-29] MEDS ORDERED: KETOROLAC 60 MG/2 ML VIAL (J1885) As Ordered (03:16)
[2017-05-29] MEDS: KETOROLAC 60 MG/2 ML VIAL (J1885) IM (03:22)
== END 2017-05-29 03:45 | disposition home or self-care (01) ==
LOC: M ED 23:16
DX: G56.22 Lesion of ulnar nerve, left upper limb (principal); F17.200 Nicotine dependence, unspecified, uncomplicated; Z79.82 Long term (current) use of aspirin
CPT/HCPCS: J1885

== ENCOUNTER 2017-06-29 20:27 | Emergency (ER) | payer OTHER ==
[2017-06-29 22:53] LABS: BASO % 0.3 % (0.0-1.0); EOS # 0.2 10^3/uL (0.0-0.50); HEMATOCRIT 42.8 % (42.0-52.0); HEMOGLOBIN 14.6 g/dl (14.0-18.0); IMMATURE GRANULOCYTE % 0.3 % (0-3.0); LYMPH # 0.7 10^3/uL (1.5-4.5); MEAN CORPUSCULAR HGB CONC 34.1 g/dl (32.0-36.5); MEAN CORPUSCULAR VOLUME 88.1 fl (80.0-96.0); MONO # 0.5 10^3/uL (0.0-0.8); MONO % 5.9 % (0.0-5.0); NEUTROPHILS # 7.5 10^3/uL (1.8-7.7); NEUTROPHILS % 83.5 % (36.0-66.0); PLATELET COUNT, AUTOMATED 125 10^3/uL (150-450); RED BLOOD COUNT 4.86 10^6/uL (4.30-6.10); RED CELL DISTRIBUTION WIDTH 12.2 % (11.5-14.5)
[2017-06-29] MEDS: ONDANSETRON 4MG/2ML VIAL (J2405) IV (22:58)
[2017-06-29] MEDS: NS 1,000 ML IV (22:58)
[2017-06-29 23:08] LABS: ANION GAP 7 MEQ/L (8-16); BLOOD UREA NITROGEN 16 MG/DL (7-18); CALCIUM LEVEL 8.6 MG/DL (8.5-10.1); CARBON DIOXIDE LEVEL 29 MEQ/L (21-32); CHLORIDE LEVEL 103 MEQ/L (98-107); CREATININE FOR GFR 0.87 MG/DL (0.70-1.30); GLOMERULAR FILTRATION RATE > 60.0 (>60); GLUCOSE, FASTING 116 MG/DL (70-100); POTASSIUM SERUM 3.6 MEQ/L (3.5-5.1); SODIUM LEVEL 139 MEQ/L (136-145)
[2017-06-29 23:11] LABS: LACTIC ACID SEPSIS PROTOCOL 1.5 MMOL/L (0.4-2.0)
[2017-06-29] MEDS: CEFTRIAXONE SOD 1 GM in APPROPRIATE DILUENT 1 EA IV (23:30)
== END 2017-06-30 00:15 | disposition home or self-care (01) ==
LOC: M ED 06-30 00:15
DX: L03.115 Cellulitis of right lower limb (principal); I25.2 Old myocardial infarction; F17.200 Nicotine dependence, unspecified, uncomplicated; Z79.82 Long term (current) use of aspirin; Z79.899 Other long term (current) drug therapy
CPT/HCPCS: J2405

== ENCOUNTER → 2017-12-14 | Outpatient (REF) | LOC: M LAB 12:25 | DX: Z02.89 Encounter for other administrative examinations (principal) ==

== ENCOUNTER 2018-03-07 17:23 | Emergency (ER) | payer OTHER ==
[2018-03-07] MEDS: ACETAMINOPHEN TAB 650MG DOSE (2X325MG) PO (19:50)
[2018-03-07] MEDS: METHOCARBAMOL 750 MG TAB PO (19:51)
[2018-03-07] MEDS: traMADol 50 MG TAB PO (19:51)
== END 2018-03-07 20:57 | disposition home or self-care (01) ==
LOC: M ED 17:23
DX: Z04.1 Encounter for examination and observation following transport accident (principal); S16.1XXA Strain of muscle, fascia and tendon at neck level, initial encounter; S29.012A Strain of muscle and tendon of back wall of thorax, initial encounter; V43.52XA Car driver injured in collision with other type car in traffic accident, initial encounter; Y92.410 Unspecified street and highway as the place of occurrence of the external cause; M25.512 Pain in left shoulder; I25.2 Old myocardial infarction; F17.200 Nicotine dependence, unspecified, uncomplicated; Z79.82 Long term (current) use of aspirin; Z79.899 Other long term (current) drug therapy
CPT/HCPCS: 72072

== ENCOUNTER 2019-04-14 21:07 | Emergency (ER) | payer OTHER ==
[~2019-04-14] VITALS: Ht 167.6 cm; Wt 72.7 kg
[~2019-04-14 21:07] MED LIST changes: +ACET-716 PO; +APAP500T10 PO; +ASPI81TA85 PO; +CLEO300C2 PO; +CLIN150C14 PO; +CYCL10TA PO; +IBUP-1022 PO; +KETO10TAB PO; +OMEP10CASR PO; +ROBA500T PO; +TRAM50TA2 PO
[2019-04-14 21:08] VITALS: BP 119/78
[2019-04-14] MEDS ORDERED: IBUP-1022 PO (22:09)
--- NOTE | 2019-04-15 06:27 | REP ---
Clinical: Trauma. Technique: AP, lateral, bilateral oblique and sunrise views left knee . Findings: The osseous structures and joint spaces are intact and normal. There is no evidence for acute fracture or dislocation. No joint effusion is appreciated. Surrounding soft tissues are unremarkable. No subcutaneous emphysema or radiodense foreign body. Impression: No acute fracture or dislocation. Electronically Signed by Michael Madsen MD 04/15/2019 06:19 A
== END 2019-04-14 22:25 | disposition home or self-care (01) ==
LOC: M ED 21:07
DX: S86.912A Strain of unspecified muscle(s) and tendon(s) at lower leg level, left leg, initial encounter (principal); X58.XXXA Exposure to other specified factors, initial encounter; Y92.89 Other specified places as the place of occurrence of the external cause; Z79.82 Long term (current) use of aspirin; F17.210 Nicotine dependence, cigarettes, uncomplicated

== ENCOUNTER 2019-04-26 22:27 | Emergency (ER) | payer OTHER ==
[~2019-04-26] VITALS: Ht 167.6 cm; Wt 72.7 kg
== END 2019-04-26 23:40 | disposition home or self-care (01) ==
LOC: M ED 22:27
DX: F10.129 Alcohol abuse with intoxication, unspecified (principal); F17.200 Nicotine dependence, unspecified, uncomplicated; Z79.82 Long term (current) use of aspirin

== ENCOUNTER → 2019-07-11 | Outpatient (REF) | payer OTHER ==
[2019-07-11 19:31] LABS: BASO # 0.1 10^3/uL (0.0-0.2); EOS # 0.4 10^3/uL (0.0-0.5); EOS % 4.3 % (0.0-3.0); HEMATOCRIT 48.7 % (42.0-52.0); HEMOGLOBIN 16.4 g/dl (13.5-17.5); LYMPH # 2.5 10^3/uL (1.5-5.0); LYMPH % 28.1 % (24.0-44.0); MEAN CORPUSCULAR HEMOGLOBIN 30.5 pg (27.0-33.0); MEAN CORPUSCULAR HGB CONC 33.7 g/dl (32.0-36.5); MEAN CORPUSCULAR VOLUME 90.5 fl (80.0-96.0); MONO # 0.9 10^3/uL (0.0-0.8); NEUTROPHILS % 56.4 % (36.0-66.0); PLATELET COUNT, AUTOMATED 220 10^3/uL (150-450); RED BLOOD COUNT 5.38 10^6/uL (4.30-6.10); WHITE BLOOD COUNT 8.9 10^3/uL (4.0-10.0)
[2019-07-11 19:44] LABS: ALBUMIN 4.3 GM/DL (3.2-5.2); ALT/SGPT 34 U/L (12-78); BILIRUBIN,TOTAL 0.7 MG/DL (0.2-1.0); BLOOD UREA NITROGEN 16 MG/DL (7-18); CALCIUM LEVEL 9.3 MG/DL (8.5-10.1); CARBON DIOXIDE LEVEL 28 MEQ/L (21-32); CHLORIDE LEVEL 106 MEQ/L (98-107); CHOLESTEROL LEVEL 261 MG/DL (<200); CHOLESTEROL RISK RATIO 5.553 (<5); CREATININE FOR GFR 0.93 MG/DL (0.70-1.30); FREE T4 1.11 NG/DL (0.76-1.46); GLOMERULAR FILTRATION RATE > 60.0 (>60); GLUCOSE, FASTING 99 MG/DL (70-100); HDL CHOLESTEROL 47 MG/DL (>40); LDL CHOLESTEROL 174 MG/DL (<100); NON-HDL-C 214 MG/DL; SODIUM LEVEL 139 MEQ/L (136-145); TOTAL PROTEIN 7.9 GM/DL (6.4-8.2); TRIGLYCERIDES LEVEL 202 MG/DL (<150)
[2019-07-11 19:49] LABS: HEMOGLOBIN A1c 5.6 %
== END ==
LOC: M LAB REF 18:49
PROVIDERS: ATTEND Nurse Practitioner Family
DX: Z13.9 Encounter for screening, unspecified (principal); Z13.89 Encounter for screening for other disorder; M25.512 Pain in left shoulder; F17.298 Nicotine dependence, other tobacco product, with other nicotine-induced disorders

== ENCOUNTER 2019-11-11 00:50 | Emergency (ER) | payer OTHER ==
[~2019-11-11] VITALS: Ht 167.6 cm; Wt 73.2 kg
[~2019-11-11 00:50] MED LIST changes: +CYCL-707 PO; -CYCL10TA PO
[2019-11-11 01:12] LABS: BASO # 0.1 10^3/uL (0.0-0.2); BASO % 0.9 % (0.0-1.0); EOS # 0.6 10^3/uL (0.0-0.5); EOS % 5.2 % (0.0-3.0); HEMATOCRIT 44.2 % (42.0-52.0); LYMPH % 37.2 % (24.0-44.0); MEAN CORPUSCULAR HEMOGLOBIN 30.5 pg (27.0-33.0); MEAN CORPUSCULAR HGB CONC 33.9 g/dl (32.0-36.5); MONO # 0.9 10^3/uL (0.0-0.8); MONO % 8.7 % (0.0-5.0); NEUTROPHILS # 5.1 10^3/uL (1.5-8.5); NEUTROPHILS % 47.7 % (36.0-66.0); PLATELET COUNT, AUTOMATED 188 10^3/uL (150-450); RED BLOOD COUNT 4.91 10^6/uL (4.30-6.10); WHITE BLOOD COUNT 10.7 10^3/uL (4.0-10.0)
[2019-11-11 01:22] LABS: INR 0.95; PROTHROMBIN TIME 12.4 SECONDS (11.8-14.0)
[2019-11-11 01:36] LABS: ALBUMIN 3.5 GM/DL (3.2-5.2); ALT/SGPT 21 U/L (12-78); BILIRUBIN,DIRECT < 0.1 MG/DL (0.0-0.2); BILIRUBIN,TOTAL 0.2 MG/DL (0.2-1.0); LIPASE 189 U/L (73-393); TOTAL PROTEIN 6.9 GM/DL (6.4-8.2)
[2019-11-11 04:31] VITALS: BP 123/77
--- NOTE | 2019-11-12 07:56 | ECGEPIP ---
[facility] - ED Test Date: 2019-11-11 Pat Name: WINSTON COOPER Department: Room: - Gender: Male Echo Technician: nyasia : 1975 Requested By: TASHIA Perales Order Number: [id number] Reading MD: Ragini Nuñez Measurements Intervals [place] Rate: 66 P: -11 CA: 130 QRS: -60 QRSD: 106 T: 31 QT: 373 QTc: 392 Interpretive Statements SINUS RHYTHM delayed R progression LEFT ANTERIOR FASCICULAR BLOCK similar 05/18/17 Electronically Signed on 11-12-2019 7:56:12 EDT by Ragini Nuñez
--- NOTE | 2019-11-12 07:56 | ECGEPIP ---
[facility] - ED Test Date: 2019-11-11 Pat Name: WINSTON COOPER Department: Room: - Gender: Male Health Services Director: KK : 1975 Requested By: TASHIA Perales Order Number: [id number] Reading MD: Ragini Nuñez Measurements Intervals [place] Rate: 54 P: -6 AL: 135 QRS: -55 QRSD: 105 T: 3 QT: 412 QTc: 393 Interpretive Statements SINUS BRADYCARDIA LEFT ANTERIOR FASCICULAR BLOCK delayed R progression similar to prior EKG 1:05 Electronically Signed on 11-12-2019 7:56:25 EDT by Ragini Nuñez
== END 2019-11-11 04:32 | disposition home or self-care (01) ==
LOC: EDBD 00:50 → M ED 00:50
DX: R07.9 Chest pain, unspecified (principal); R00.1 Bradycardia, unspecified; F10.10 Alcohol abuse, uncomplicated; F17.200 Nicotine dependence, unspecified, uncomplicated; Z79.82 Long term (current) use of aspirin

== ENCOUNTER 2021-04-23 00:14 | Emergency (ER) | payer OTHER ==
[~2021-04-23] VITALS: Ht 167.6 cm; Wt 72.7 kg
[~2021-04-23 00:14] MED LIST changes: -ASPI81TA85 PO; +ASPI81TA86 PO; -CLIN150C14 PO; +CLIN150C17 PO; +DISU1TAB6; +NALT50TA4
[2021-04-23] MEDS ORDERED: NS 1,000 ML IV ONE (00:40)
[2021-04-23 01:08] LABS: VENOUS BASE EXCESS -1.1 (-2.0-2.0); VENOUS HCO3 24.4 MEQ/L (23.0-27.0); VENOUS O2 SATURATION 84.8 % (60.0-80.0); VENOUS PARTIAL PRESSURE CO2 43.2 mmHg (38.0-50.0); VENOUS PH 7.369 UNITS (7.330-7.430); VENOUS STANDARD HCO3 23.2 MEQ/L; VENOUS TOTAL CO2 25.7 MEQ/L (24.0-28.0)
[2021-04-23 01:12] LABS: BASO # 0.1 10^3/uL (0.0-0.2); BASO % 1.1 % (0.0-1.0); EOS # 0.3 10^3/uL (0.0-0.5); HEMATOCRIT 45.2 % (42.0-52.0); HEMOGLOBIN 15.4 g/dl (13.5-17.5); LYMPH # 1.9 10^3/uL (1.5-5.0); LYMPH % 26.8 % (24.0-44.0); MEAN CORPUSCULAR HEMOGLOBIN 29.4 pg (27.0-33.0); MEAN CORPUSCULAR HGB CONC 34.1 g/dl (32.0-36.5); MEAN CORPUSCULAR VOLUME 86.4 fl (80.0-96.0); MONO # 0.8 10^3/uL (0.0-0.8); MONO % 10.8 % (2.0-8.0); NEUTROPHILS # 4.1 10^3/uL (1.5-8.5); NEUTROPHILS % 56.7 % (36.0-66.0); PLATELET COUNT, AUTOMATED 224 10^3/uL (150-450); RED BLOOD COUNT 5.23 10^6/uL (4.30-6.10); WHITE BLOOD COUNT 7.3 10^3/uL (4.0-10.0)
[2021-04-23 02:55] LABS: AMPHETAMINES LEVEL URINE POSITIVE (NEGATIVE); BARBITURATES URINE NEGATIVE (NEGATIVE); BENZODIAZEPINES URINE NEGATIVE (NEGATIVE); CANNABINOIDS URINE NEGATIVE (NEGATIVE); COCAINE METABOLITE URINE NEGATIVE (NEGATIVE); METHADONE URINE NEGATIVE (NEGATIVE); OPIATES URINE NEGATIVE (NEGATIVE); PHENCYCLIDINE URINE NEGATIVE (NEGATIVE)
[2021-04-23 03:26] LABS: ALBUMIN 4.1 GM/DL (3.2-5.2); BILIRUBIN,DIRECT 0.1 MG/DL (0.0-0.2); BILIRUBIN,TOTAL 0.5 MG/DL (0.2-1.0); BLOOD UREA NITROGEN 11 MG/DL (7-18); CALCIUM LEVEL 9.8 MG/DL (8.5-10.1); CARBON DIOXIDE LEVEL 26 MEQ/L (21-32); CHLORIDE LEVEL 103 MEQ/L (98-107); CREATININE FOR GFR 0.94 MG/DL (0.70-1.30); GLOMERULAR FILTRATION RATE > 60.0 (>60); GLUCOSE, FASTING 100 MG/DL (70-100); POTASSIUM SERUM 3.5 MEQ/L (3.5-5.1); SALICYLATE LEVEL 3.7 MG/DL (5.0-30.0); SODIUM LEVEL 136 MEQ/L (136-145); TOTAL PROTEIN 7.4 GM/DL (6.4-8.2)
[2021-04-23 03:51] LABS: ACETAMINOPHEN LEVEL < 2.0 UG/ML (10.0-30.0); ALT/SGPT 36 U/L (12-78); ETHYL ALCOHOL (ETHANOL) < 0.003 % (0.000-0.010)
[2021-04-23 04:45] VITALS: BP 127/84
== END 2021-04-23 04:46 | disposition home or self-care (01) ==
LOC: M ED 00:14 → EDBD 00:14 → M ED 04:46
DX: R56.9 Unspecified convulsions (principal); I45.19 Other right bundle-branch block; R94.31 Abnormal electrocardiogram [ECG] [EKG]; F10.10 Alcohol abuse, uncomplicated; F17.200 Nicotine dependence, unspecified, uncomplicated

== ENCOUNTER 2021-06-01 12:50 | Emergency (ER) | payer OTHER ==
[~2021-06-01] VITALS: Ht 167.6 cm; Wt 72.7 kg
[2021-06-01 13:36] LABS: BASO # 0.1 10^3/uL (0.0-0.2); BASO % 0.9 % (0.0-1.0); EOS # 0.4 10^3/uL (0.0-0.5); EOS % 4.2 % (0.0-3.0); HEMATOCRIT 47.9 % (42.0-52.0); HEMOGLOBIN 16.3 g/dl (13.5-17.5); LYMPH # 2.6 10^3/uL (1.5-5.0); LYMPH % 29.7 % (24.0-44.0); MEAN CORPUSCULAR HEMOGLOBIN 29.8 pg (27.0-33.0); MEAN CORPUSCULAR VOLUME 87.6 fl (80.0-96.0); MONO # 0.9 10^3/uL (0.0-0.8); MONO % 10.1 % (2.0-8.0); NEUTROPHILS # 4.7 10^3/uL (1.5-8.5); NEUTROPHILS % 54.8 % (36.0-66.0); PLATELET COUNT, AUTOMATED 278 10^3/uL (150-450); RED BLOOD COUNT 5.47 10^6/uL (4.30-6.10); WHITE BLOOD COUNT 8.6 10^3/uL (4.0-10.0)
[2021-06-01 13:51] VITALS: BP 113/73
[2021-06-01 14:00] LABS: CK-MB VALUE MASS < 1.0 NG/ML (<3.6); CPK CREATINE PHOSPHOKINASE 225 U/L (39-308); MB/CK RELATIVE INDEX 0.44 (< OR =4)
[2021-06-01 14:22] LABS: ACETAMINOPHEN LEVEL < 2.0 UG/ML (10.0-30.0); ALBUMIN 3.9 GM/DL (3.2-5.2); ALT/SGPT 30 U/L (12-78); BILIRUBIN,DIRECT < 0.1 MG/DL (0.0-0.2); BILIRUBIN,TOTAL 0.3 MG/DL (0.2-1.0); BLOOD UREA NITROGEN 14 MG/DL (7-18); CALCIUM LEVEL 9.6 MG/DL (8.5-10.1); CARBON DIOXIDE LEVEL 26 MEQ/L (21-32); CHLORIDE LEVEL 105 MEQ/L (98-107); CREATININE FOR GFR 1.03 MG/DL (0.70-1.30); ETHYL ALCOHOL (ETHANOL) < 0.003 % (0.000-0.010); GLOMERULAR FILTRATION RATE > 60.0 (>60); GLUCOSE, FASTING 105 MG/DL (70-100); POTASSIUM SERUM 5.9 MEQ/L (3.5-5.1); SALICYLATE LEVEL 3.4 MG/DL (5.0-30.0); SODIUM LEVEL 134 MEQ/L (136-145)
[2021-06-01] MEDS ORDERED: DIVALPROEX 500 MG TAB PO ONE (14:30)
[2021-06-01] MEDS ORDERED: DEPA250T2 PO (14:54)
== END 2021-06-01 17:33 | disposition home or self-care (01) ==
LOC: M ED 12:50 → EDBD 12:50 → M ED 17:33
DX: R56.9 Unspecified convulsions (principal); R94.31 Abnormal electrocardiogram [ECG] [EKG]; J32.1 Chronic frontal sinusitis; I50.9 Heart failure, unspecified

== ENCOUNTER → 2021-08-26 | Outpatient (CLI) | payer OTHER ==
[~2021-08-26] MED LIST changes: +DEPA250T2 PO
[2021-08-26 16:21] LABS: BASO # 0.1 10^3/uL (0.0-0.2); BASO % 1.2 % (0.0-1.0); EOS # 0.4 10^3/uL (0.0-0.5); EOS % 4.3 % (0.0-3.0); HEMATOCRIT 46.2 % (42.0-52.0); HEMOGLOBIN 15.6 g/dl (13.5-17.5); LYMPH % 31.9 % (24.0-44.0); MEAN CORPUSCULAR HEMOGLOBIN 30.8 pg (27.0-33.0); MEAN CORPUSCULAR HGB CONC 33.8 g/dl (32.0-36.5); MEAN CORPUSCULAR VOLUME 91.3 fl (80.0-96.0); MONO % 10.5 % (2.0-8.0); NEUTROPHILS # 4.8 10^3/uL (1.5-8.5); NEUTROPHILS % 51.6 % (36.0-66.0); PLATELET COUNT, AUTOMATED 238 10^3/uL (150-450); RED BLOOD COUNT 5.06 10^6/uL (4.30-6.10); WHITE BLOOD COUNT 9.3 10^3/uL (4.0-10.0)
[2021-08-26 16:55] LABS: ALT/SGPT 35 U/L (12-78); BILIRUBIN,TOTAL 0.3 MG/DL (0.2-1.0); BLOOD UREA NITROGEN 14 MG/DL (7-18); CALCIUM LEVEL 9.7 MG/DL (8.5-10.1); CARBON DIOXIDE LEVEL 29 MEQ/L (21-32); CHLORIDE LEVEL 107 MEQ/L (98-107); CREATININE FOR GFR 0.84 MG/DL (0.70-1.30); GLOMERULAR FILTRATION RATE > 60.0 (>60); GLUCOSE, FASTING 91 MG/DL (70-100); POTASSIUM SERUM 4.4 MEQ/L (3.5-5.1); RHEUMATOID FACTOR QUANT < 10.0 IU/ML (<15.0); SODIUM LEVEL 141 MEQ/L (136-145); TOTAL PROTEIN 7.3 GM/DL (6.4-8.2); VALPROIC ACID (DEPAKOTE) 52.4 UG/ML (50.0-100.0)
[2021-08-26 17:39] LABS: ERYTHROCYTE SEDIMENTATION RATE 12 mm/hr (0-15)
== END ==
LOC: M LAB 15:24
PROVIDERS: ATTEND Psychiatry & Neurology Neurology
DX: G40.89 Other seizures (principal)

== ENCOUNTER 2022-06-24 20:59 | Emergency (ER) | payer OTHER ==
[~2022-06-24] VITALS: Ht 167.6 cm; Wt 78.3 kg
[2022-06-24 21:01] VITALS: BP 150/80
[2022-06-24] MEDS ORDERED: OMEP-173 PO (21:19)
== END 2022-06-25 00:01 | disposition left against medical advice (07) ==
LOC: M ED 20:59
DX: Z53.21 Procedure and treatment not carried out due to patient leaving prior to being seen by health care provider (principal)

== ENCOUNTER 2022-07-13 12:54 | Emergency (ER) | payer OTHER ==
[~2022-07-13 12:54] MED LIST changes: +OMEP-173 PO
[2022-07-13] MEDS ORDERED: EPINEPHrine 1MG/10ML SYRINGE 1.5IN ONE (12:55)
[2022-07-13] MEDS ORDERED: CALCIUM CHLORIDE 10% 1 GM/10 ML SYR ONE (12:55)
[2022-07-13] MEDS ORDERED: AMIODARONE 150MG/3ML VIAL ONE (12:55)
[2022-07-13] MEDS ORDERED: SODIUM BICARBONATE 8.4% INJ 50ML SYRINGE ONE (12:55)
[2022-07-13 13:00] VITALS: BP 181/101
[2022-07-13 14:41] LABS: RSV AMPLIFICATION NEGATIVE (NEGATIVE)
== END 2022-07-13 16:22 | disposition expired ==
LOC: EDBD 12:54 → M ED 12:54
DX: I46.9 Cardiac arrest, cause unspecified (principal); I25.2 Old myocardial infarction; G40.89 Other seizures; E78.5 Hyperlipidemia, unspecified; F17.200 Nicotine dependence, unspecified, uncomplicated; Z79.83 Long term (current) use of bisphosphonates; Z79.899 Other long term (current) drug therapy
CPT/HCPCS: 51701; 87631; 99284; J0171; J0282

== ENCOUNTER → 2022-07-14 | Outpatient (REF) | LOC: M LAB 08:52 ==